=== PATIENT | female | born 1945 | race Caucasian/White ===

== ENCOUNTER 2016-03-24 08:02 | Inpatient (IN) | payer OTHER ==
[2016-03-24] VITALS (14 sets, daily range): BP systolic 130–179; BP diastolic 56–99
[~2016-03-24] VITALS: Ht 152.4 cm; Wt 38.6 kg
--- NOTE | 2016-03-24 09:07 | DIAGNOSTIC IMAGING REPORT ---
PROCEDURE: CT HEAD WITHOUT CONTRAST INDICATION: MENTAL STATUS CHANGE TECHNIQUE: Axial CT images were acquired through the head. Coronal and sagittal reformations were created. COMPARISON: None. FINDINGS: Mild cerebral cortical atrophy. Marked hypodensity in the periventricular and subcortical white matter. There is hydrocephalus with dilatation of the third ventricle and temporal horns. No intracranial hemorrhage or extraaxial fluid collections. There is no mass, mass effect or midline shift. The farias-white matter differentiation is normal. There is no edema. Calcific atherosclerosis of the intracranial internal carotid arteries. The calvarium is intact. The paranasal sinuses and mastoid air cells are normally aerated. The extracranial soft tissues and orbits are normal. IMPRESSION: 1. Hydrocephalus 2. Age related involutional and white matter changes. 3. Findings discussed with Dr. Montiel at 09:[address] scans at this facility use dose modulation, iterative reconstruction, and/or weight-based dosing when appropriate to reduce radiation dose to as low as reasonably achievable.
--- NOTE | 2016-03-24 09:09 | DIAGNOSTIC IMAGING REPORT ---
PROCEDURE: XR CHEST 1 VIEW INDICATION: RHONCHI TECHNIQUE: Portable AP view 8 am COMPARISON: None. FINDINGS: Lungs are clear. Heart and mediastinum are normal. Thorax is normal. Calcified breast implants. IMPRESSION: 1. No acute infiltrates
--- NOTE | 2016-03-24 10:00 | ED CLINICAL REPORT ---
Clinical Report - Physicians/Mid Levels [facility] [address] [place] [address] 03/24/2016 8:06 Patient: ABY HOLLIS Time Seen: 07:57. Arrived- By ambulance. Historian- EMS personnel. History limited by severe distress and aphasia. Physical Exam limited by poor comprehension, poor cooperation, severe distress and aphasia. CPT: Critical care < 74 min plus (#[id number]) and 30-74 min plus (#[id number]). EKG interpretation (#[id number]). HISTORY OF PRESENT ILLNESS Chief Complaint: "Found down". ( Unresponsive, but eyes open and tracking.). At its maximum, severity described as severe. When seen in the E.D., severity described as severe. Modifying factors. Not worsened by anything. Not relieved by anything. This started unknown and is still present. The patient has had weakness. (EMS were contacted by a neighbor. The patient was apparently found lying down in her front yard covered in dirt and alert though not responsive. They report that her blood glucose was normal but that she was too cold to measure a rectal temperature.). Similar symptoms previously: None. Recent medical care: Not recently seen/assessed. REVIEW OF SYSTEMS Unobtainable due to patient's altered mental status. PAST HISTORY Pt has no known PMH other than alcoholism reported by neighbors. Problems: Hypertension. SOCIAL HISTORY Alcohol use. FAMILY HISTORY Unable to obtain family medical history due to patient's unresponsiveness. ADDITIONAL NOTES The nursing notes have been reviewed. PHYSICAL EXAM Vital Signs: 03/24/2016 08:15 BP: 134/97. HR: 163. RR: 12. Kaur-Osorio pain scale: 4/10. Appearance: Alert. She is unresponsive, appears ill and uncomfortable and is cyanotic. She appears frail, elderly, unkempt and older than stated age. Patient in severe distress. Eyes: Pupils equal, round and reactive to light. Eyes normal inspection. ENT: Nose normal. Dry mucous membranes present. Neck: Neck supple. No meningeal signs, JVD or carotid bruit. CVS: Normal heart rate and rhythm. Heart sounds normal. Respiratory: No respiratory distress. Mild bilateral rhonchi present diffusely. Chest nontender. Abdomen: No visible injury. Soft and nontender. Bowel sounds normal. No mass. Back: Normal inspection. Rectal: Strongly heme-positive stool. (POC test reference range: negative). Skin: Cyanosis. Markedly cool skin. Pallor. She has multiple medium superficial abrasions on the right leg and left leg. She has multiple medium-sized bruises to the right hand, left hand, right leg and left leg. Extremities: No calf tenderness. No lower extremity edema. (deep cyanosis of all 4 distal extremities. Multiple abrasions over the extremities.). Neuro: Moderately altered mental status. Eyes open spontaneously. Best verbal response: none. Best motor response: obeys commands. (Eyes open but unresponsive.). No motor deficit. No sensory deficit. LABS, X-RAYS, AND EKG EKG: Atrial fibrillation. Non-specific ST segment / T wave abnormalities. Prior EKG unavailable. Artifact present. Chest X-ray: Normal Chest X-Ray. CT Head: No acute changes. No hemorrhage. (Hydrocephalus. No sign of CVA.). Head CT performed without contrast. The study was independently viewed by me, interpreted by the radiologist and discussed with the radiologist. Laboratory Tests: UA-Culture if indicated: (YANELI: 03/24/2016 09:04) ( MsgRcvd 03/24/2016 09:39) Final results Test Result Flag Units (Reference) URINE COLOR YELLOW URINE APPEARANCE SL CLOUDY URINE GLUCOSE TRACE (NEGATIVE) URINE BILIRUBIN NEGATIVE (NEGATIVE) URINE KETONE NEGATIVE (NEGATIVE) URINE SPECIFIC GRAVITY 1.025 (1.010-1.030) URINE PH 5.5 (5.0-8.0) URINE PROTEIN 2+ (NEGATIVE) URINE UROBILINOGEN 0.2 EU/dL (0.2-1.0) URINE NITRITE NEGATIVE (NEGATIVE) URINE BLOOD 3+ (NEGATIVE) URINE LEUK ESTERASE NEGATIVE (NEGATIVE) URINE RBC 0-1 rbc/hpf (0-1) URINE WBC 0-1 wbc/hpf (0-1) URINE EPITHELIAL CELLS NONE SEEN EPI/hpf (0-5) URINE BACTERIA NONE SEEN (NONE SEEN) URINE COMMENT CULT NOT INDICATED 4+ AMORPHOUSURINE CULTURES ARE SET-UP BASED ON THE FOLLOWING CRITERIA:POSITIVE NITRITEPOSITIVE LEUKOCYTE ESTERASEGREATER THAN 10 WHITE BLOOD CELLSMODERATE (2+) OR GREATER BACTERIA CBC w Diff: (YANELI: 03/24/2016 09:00) ( [facility] 03/24/2016 09:19) Final results Test Result Flag Units (Reference) WHITE BLOOD COUNT 10.4 K/uL (4.5-11.5) RED BLOOD COUNT 3.78 L M/uL (4.00-5.20) HEMOGLOBIN 13.4 gm/dL (12.0-16.0) HEMATOCRIT 39.9 % (36.0-46.0) MEAN CELL VOLUME 105 H fL (80-100) MEAN CORPUSCULAR HGB 35 H pg (26-34) MEAN CORPUSCULAR HGB CONC 34 g/dL (31-37) RED CELL DISTRIBUTION WIDTH 14.6 % (11.6-14.8) PLATELET COUNT 191 K/uL (150-400) NEUTROPHIL % 90.6 H % (50-75) LYMPH % 8.5 L % (25-40) MONO % 0.7 L % (3-14) EOSINOPHIL % 0.1 % (0-4) BASOPHIL % 0.1 % (0-2) PT with INR: (YANELI: 03/24/2016 09:15) ( [facility] 03/24/2016 09:39) Final results Test Result Flag Units (Reference) INR 1.2 (0.8-1.2) Low Intensity Therapy: INR 1.5-2.0 PT range 18.5-23.1Mod.Intensity Therapy: INR 2.0-3.0 PT range 23.1-31.5High Intensity Therapy: INR 2.5-3.5 PT range 27.4-35.5High Intensity Therapy 2: INR 3.0-4.0 PT range 31.5-39.3 APTT 34 SECONDS (24-34) Urine Drug Screen: (YANELI: 03/24/2016 09:04) ( [facility] 03/24/2016 09:42) Final results Test Result Flag Units (Reference) AMPHETAMINE/METHAMPHETAMINE NEGATIVE (NEGATIVE) BARBITURATE NEGATIVE (NEGATIVE) BENZODIAZEPINE NEGATIVE (NEGATIVE) CANNABINOID POSITIVE H (NEGATIVE) COCAINE NEGATIVE (NEGATIVE) ECSTASY NEGATIVE (NEGATIVE) METHADONE NEGATIVE (NEGATIVE) OPIATE NEGATIVE (NEGATIVE) The urine drug screen is a qualitative screening test fordrug overdose and abuse. All screen results should beconsidered as presumptive.Drugs screened for are as follows:BenzodiazepinesCocaineAmphetamines/MetamphetaminesTHC (Tetrahydrocannabinol)OpiatesBarbituratesEcstasyMethadonePositive results are unconfirmed. For confirmation, notifythe lab for the specimen to be sent to the reference lab.All confirmations must be performed by a differentmethodology.The ingestion of natural herbal and plant productscontaining Ephedra/Ephedra metabolites can produce in urineone or more substances capable of cross reacting withamphetamine/methamphetamine immunoassays. These testsprovide a preliminary result only. A more specificalternative chemical method must be used to obtain aconfirmed analytical result. Lactate, Serum: (YANELI: 03/24/2016 09:04) ( MsgRcvd 03/24/2016 09:54) Final results Test Result Flag Units (Reference) LACTIC ACID 4.0 H mmol/L (0.4-2.0) CRITICAL RESULTS CALLEDCalled to MARY KATE BECK IN ED 03/24/16 0953Were 2 patient identifiers used? YWas the result read back? Y CMP: (YANELI: 03/24/2016 09:00) ( MsgRcvd 03/24/2016 09:42) IP Test Result Flag Units (Reference) GLUCOSE 75 mg/dL (70-110) BUN 13 mg/dL (7-18) CREATININE 0.4 L mg/dL (0.6-1.3) Estimated GFR >60 mL/min Estimated GFR- >60 mL/min Note: Persistent reduction over 3 months in eGFR<60 mL/min/1.73 m2 defines CKD. Patients with eGFR values>=60 mL/min/1.73 m2 may also have CKD if evidence ofpersistent proteinuria. Additional information may be foundat www.kidney.org. SODIUM 128 L mmol/L (136-145) POTASSIUM 4.1 mmol/L (3.5-5.1) CHLORIDE 95 L mmol/L (98-107) CARBON DIOXIDE 17 L mmol/L (21-32) CALCIUM 7.8 L mg/dL (8.5-10.1) TOTAL PROTEIN 6.5 g/dL (6.4-8.2) ALBUMIN 3.5 g/dL (3.3-5.0) BILIRUBIN, TOTAL 0.3 mg/dL (0.0-1.0) ALKALINE PHOSPHATASE 54 U/L (46-116) AST (SGOT) 94 H U/L (15-37) ALT (SGPT) 28 U/L (12-78) LIPASE 389 U/L (73-393) AMYLASE 81 U/L (25-115) TROPONIN I 0.17 ng/mL (0.00-1.5) TROPONIN REFERENCE RANGE:<0.1 NEGATIVE0.1-1.5 INDETERMINANT>1.5 POSITIVE ETHYL ALCOHOL 41 H mg/dL (3-10) ABG: (YANELI: 03/24/2016 08:43) ( MsgRcvd 03/24/2016 09:07) Final results Test Result Flag Units (Reference) FIO2 37 % (20-101) ABG MODE OF DELIVERY NC MODIFIED AARTI TEST POSITIVE? YES LITERS PER MIN. 4 L/MIN (0-20) ARTERIAL BLOOD GAS SITE RR ARTERIAL BLOOD GAS pH 7.18 *L (7.35-7.45) ABG PCO2 43.8 mmHg (35-45) ABG PO2 135.0 H mmHg (60.0-80.0) ABG BASE EXCESS -11.1 *L mmol/L (-6.0--6.0) ABG HCO3 16.4 L mmol/L (20.0-26.0) ABG TCO2 17.7 L mmol/L (24.0-30.0) ABG [id number] 77.8 H mmHg (7.0-14.0) *NOTE: Normal rangeis based on aFIO2 of 21% ABG SAT O2 98.6 % (95.1-100.0) ABG TOTAL HEMOGLOBIN 12.2 g/dL (12.0-16.0) ABG O2 HEMOGLOBIN 96.4 % (95.0-100.0) ABG CARBOXYHEMOGLOBIN 2.1 H % (0.5-1.5) ABG METHEMOGLOBIN 0.1 L % (0.4-1.5) ABG RHEMOGLOBIN 1.4 % COMMENTS PT VERY COLD . PROGRESS AND PROCEDURES Course of Care: 10:10 03/24/16. Took over patient care at 09 100 due to shift change. Took report from Dr. Montiel. patient had unmeasurable temperature on arrival. Within an hour of arrival the patient's temperature was up to 82 and is now at 85F. This is per rectal probe. Her initial blood pressure in the mid 70s and is now 137 systolic after a liter of warm fluids. Dr. Mckeon arrived and evaluated the patient in the ER. The plan is to admit her to the ICU for further rewarming and monitoring. Records from outside walk-in clinic show a visit in 2012 but there is no past medical history her meds listed. Patient has not been compliant with primary care. She has no PCP. Roommate says that she's been a heavy drinker for some time. The patient's now more alert and asking appropriate questions and responding appropriately. Initially she was unresponsive with her eyes open tracking. Present problems include what appears to be a GI bleed is she's had ground emesis color material on her feet and her rectal guaiac is positive. She also has an alcohol level of 41 supporting her alcoholism. Hypothermia from exposure. In addition her troponin is indeterminate and she is in atrial fibrillation. She also has a metabolic acidosis with an elevated lactic acid of 4 and inappropriate respiratory compensation. Hydrocephalus noted on CT of head. IV NS with MVI and thiamine started. Discussed case with on-call health care provider, (Td). Reviewed test results. Agreed upon treatment plan and decision to admit. Health care provider will see patient in ED. Patient/family counseled. Old medical records ordered. Disposition orders written. Disposition: Admitted to the Critical Care Unit. CLINICAL IMPRESSION Substance abuse problems: abuse of alcohol and cannabis. Substance dependence problems: dependence on alcohol and cannabis. Severe hypothermia secondary to exposure with arrhythmia, hypotension, altered mental status and coma in the field and upon arrival at the ED. Profound hypotension. Lactic acidosis, metabolic acidosis and respiratory acidosis. Alcoholism GI bleed with guaiac positive stool Indeterminant troponin Atrial fibrillation: unclear how acute in onset. Hydrocephalus on CT today. Multiple contusions and abrasions Fall for unclear reasons. Elevated CPK. (Electronically signed by Aidan Monzon MD 03/25/2016 11:28)
--- NOTE | 2016-03-24 10:00 | ED ORDER SUMMARY ---
..... Patient: ABY HOLLIS OrderSheet [facility] VisitID: [id number] [place] [address] 70y, F Registration Date/Time: 03/24/2016 ORDER SHEET Weight: 49.8 kg (estimated) Allergies: None GENERAL ORDERS: Chest 1V Urgent (08:18 03/24/2016 Everton LOYD) (Ack 8:25 LMuller) (9:50 JSimbeck R.N.) Blood Culture (No) (N/A) Urgent (08:03/24/2016 Everton LOYD) (Ack 8:25 LMuller) (9:50 JSimbeck R.N.) Range Feeder (Continuous) (08:03/24/2016 Everton LOYD) (Ack 8:25 LMuller) (9:50 JSimbeck R.N.) CT Head wo Cont Urgent (08:03/24/2016 Everton LOYD) (Ack 8:25 LMuller) (9:50 JSimbeck R.N.) Solis Catheter (3 port for warmed fluid bladder lavage) (08:03/24/2016 Everton LOYD) (Ack 8:25 LMuller) (9:50 JSimbeck R.N.) CBC w Diff Urgent (:03/24/2016 Everton LOYD) (Ack 8:25 LMuller) (9:50 JSimbeck R.N.) CMP Urgent (:03/24/2016 Everton LOYD) (Ack 8:25 LMuller) (9:50 JSimbeck R.N.) UA-Culture if indicated Urgent (:03/24/2016 Everton LOYD) (Ack 8:25 LMuller) (9:50 JSimbeck R.N.) PT with INR Urgent (:03/24/2016 Everton LOYD) (Ack 8:25 LMuller) (9:50 JSimbeck R.N.) PTT Urgent (:03/24/2016 Everton LOYD) (Ack 8:25 LMuller) (9:50 JSimbeck R.N.) Amylase Urgent (:03/24/2016 Everton LOYD) (Ack 8:25 LMuller) (9:50 JSimbeck R.N.) Lipase Urgent (08:03/24/2016 Everton LOYD) (Ack 8:25 LMuller) (9:50 JSimbeck R.N.) CPK Urgent (08:03/24/2016 Everton LOYD) (Ack 8:25 LMuller) (9:50 JSimbeck R.N.) Troponin-I Urgent (08:03/24/2016 Everton LOYD) (Ack 8:25 LMuller) (9:50 JSimbeck R.N.) Lactate, Serum Urgent (08:03/24/2016 Everton LOYD) (Ack 8:25 LMuller) (9:50 JSimbeck R.N.) Ethyl Alcohol Urgent (08:03/24/2016 Everton LOYD) (Ack 8:25 LMuller) (9:50 JSimbeck R.N.) Urine Drug Screen Urgent (08:03/24/2016 Everton LOYD) (Ack 8:25 LMuller) (9:50 JSimbeck R.N.) Oxygen (2 L/min) (NC) (08:03/24/2016 Everton LOYD) (Ack 8:25 LMuller) (9:50 JSimbeck R.N.) Pulse oximeter (08:03/24/2016 Everton LOYD) (Ack 8:25 LMuller) (9:50 JSimbeck R.N.) EKG - ER Stat (08:03/24/2016 Everton LOYD) (Ack 8:25 LMuller) (9:50 JSimbeck R.N.) RENETTA Hugger (08:03/24/2016 Everton LOYD) (Ack 8:25 LMuller) (9:50 JSimbeck R.N.) ABG (G) Urgent (08:43 03/24/2016 Everton LOYD) (Ack 9:03 LMuller) (9:50 JSimbeck R.N.) Type & Screen Urgent (09:06 03/24/2016 Everton LOYD) (Ack 9:22 LMuller) (9:50 Franck George) Magnesium Urgent (10:09 03/24/2016 Jake LOYD) (10:12 LMulldiego) MEDICATION ORDERS: IV FLUIDS: IV NS : initial bolus 500 mL (1000 mL/hr), then 125 mL/hr for 4h (NOW); Urgent (warmed fluids) (08:19 03/24/2016 Everton LOYD) (9:53 Franck De León.NBon) IV NS with Normal Saline 1 Liter, Multivitamin Concentrate Intravenous 1 amp/L, Thiamine HCl 100 mg/L: initial bolus 1000 mL (1000 mL/hr), then 500 mL/hr for 4h (NOW); Routine (09:25 03/24/2016 Jake LOYD) (9:55 Franck R.N.) ORDER SHEET NOTES: [Electronically signed by Wesley Paulson R.N. (12:33 03/24/2016)] [Electronically signed by Wesley Paulson R.N. (12:34 03/24/2016)] [Electronically signed by Aidan Monzon MD (11:28 03/25/2016)] [Electronically locked/signed by Wesley Paulson R.N. (12:33 03/24/2016)]
--- NOTE | 2016-03-24 10:00 | ED NURSING NOTES ---
Clinical Report - Nurses [facility] [address] [place] [address] 03/24/2016 8:06 Patient: ABY HOLLIS TRIAGE Triage time 0800. Chief Complaint: (Pt found down in her front yard by a neighbor. Non-verbal, awake, does not follow commands. Hypothermic.). 08:45 03/24/16. --08:45 Wesley Paulson R.N. 08:15 03/24/16. BP: 134/97. HR: 163. RR: 12. Kaur-Osorio pain scale: 4/10. Additional comments: Unable to obtain rectal temp due to profound hypothermia, v/s are not reliable at this point. --10:34 Wesley Paulson R.N. Acuity: LEVEL 2. late entry -08:15. REED COMA SCORE: Iraan Coma Scale: 6- eyes open spontaneously (4); best verbal response- none (1); best motor response- none (1). --10:39 Wesley Paulson R.N. Weight: 49.8 kg estimated. Height/Length: 60 inches Estimated. BMI: 21.4. --10:36 Wesley Paulson R.N. Medications Aspirin Oral. Tylenol Oral. --08:44 Wesley Paulson R.N. Allergies None. --08:44 Wesley Paulson R.N. History Arrived by EMS. Onset. (Unknown how long she was down.). --08:45 Wesley Paulson R.N. SOCIAL HX: Smoker- current status unknown (cigarette). Heavy alcohol use. Patient is a longstanding alcoholic. --10:39 Wesley Paulson R.N. PROBLEMS: Hypertension. --08:44 Wesley Paulson R.N. Smoker. Alcoholism. --10:38 Wesley Paulson R.N. Interventions ID band on patient. To treatment room. --10:39 Wesley Paulson R.N. PHYSICAL ASSESSMENT late entry -08:15. To room via stretcher. GENERAL / NEURO / PSYCH: Appears in distress. The patient is disoriented. ( Non-verbal, unable to follow commands. Pt is covered in dirt and twigs.). Pupillary exam: Pupils are equal, round, and reactive to light. Right pupil 2mm. Left pupil: 2mm. RESPIRATORY: Wheezing present. CVS: No JVD. Cardiac rhythm: atrial fibrillation. Pulses: (peripheral pulses are extremely weak and thready by palpation.). Capillary refill is greater than 2 seconds. GI / : ( Guiac positive stool.). EXTREMITIES: No lower extremity edema. SKIN: Cyanosis. ( Skin is ice cold. She has multiple abrasions and avulsions on her hands, elbows, knees. Poor turgor.). --10:53 Wesley Paulson R.N. NURSING PROGRESS NOTES 08:10 03/24/2016 Site #1 started via IV in the right antecubital space with an 20g angiocath, with good blood return; two attempts. Saline lock flushed with 10 mL saline. --09:52 Wesley Paulson R.N. 08:10 03/24/2016 Site #2 started via IV in the left antecubital space with an 20g angiocath; two attempts. Blood drawn: rainbow set. Labeled in the presence of the patient and sent to the lab. Saline lock flushed with 10 mL saline. --09:52 Wesley Paulson R.N. 08:10 03/24/2016 Started bag #1 1000 mL IV Fluids IV NS (Saline); bolus of 1000 mL over 30 minute(s) via site #2. Allergies verified and confirmed 5 rights. IV patency established. IV site checked: no pain, redness, or swelling. IV flushed thoroughly pre- and post-medication administration. --09:53 Wesley Paulson R.N. 08:40 03/24/2016 IV Fluids IV NS via IV site #2 Rate Changed: bag #1 decreased to 125 mL/hr via IV pump. IV patency established. IV site checked: no pain, redness, or swelling. IV flushed thoroughly. Confirmed 5 Rights. --09:54 Wesley Paulson R.N. 09:40 03/24/2016 Started bag #1 1000 mL IV Fluids IV NS (Saline); bolus of 1000 mL over 1 hour(s) via site #2 --09:55 Wesley Paulson R.N. 10:52 03/24/2016 IV Fluids IV NS via IV site #2 Rate Changed: bag #2 decreased to 500 mL/hr via IV pump. IV patency established. IV site checked: no pain, redness, or swelling. IV flushed thoroughly. Confirmed 5 Rights. --10:52 Edwin Eckert R.N. late entry -08:10. ( Bear Hugger and Gaymar heating blankets applied for warming. IVF placed on Hotline fluid warmer.). --10:59 Wesley Paulson R.N. late entry -08:15. Cardiac rhythm: atrial fibrillation. Oxygen administered by nasal cannula at 4 liters. cat dog or other pet groomer, pulse oximeter, end tidal CO2 monitor and NIBP monitor placed on patient; director of cardiac rehabilitation- Lead II and V5; monitor alarms on. Head of bed elevated 15 degrees. Reassurance given. Two patient identifiers checked. Call light placed in reach. Side rails up x 2. Bed placed in lowest position. Brakes of bed on. Patient ready for evaluation- chart flagged. --10:55 Wesley Paulson R.N. late entry -08:45. Time-out completed immediately before the procedure. (0845) 18 fr double lumen brewer catheter placed. Reason for indwelling catheter: trauma and patient's decreased level of consciousness. During procedure hand hygiene observed and sterile equipment and aseptic technique used. Return of 125 mL yellow-colored urine; attached to bedside drainage bag positioned below the bladder and urimeter and secured with velcro. She tolerated procedure fair (3 way brewer for continuous bladder lavage for hypothermia treatment.). --10:57 Wesley Paulson R.N. late entry -08:45. ( Bladder irrigation fluid placed on Level I fluid warmer.). --10:59 Wesley Paulson R.N. 08:45 03/24/16. BP: 77/48. HR: 69. RR: 16. End tidal CO2: 16 mmHg. --11:00 Wesley Paulson R.N. 09:00 03/24/16. HR: 82. RR: 20. Temp: 83.3 F (rectal). End tidal CO2: 18 mmHg. --11:01 Wesley Paulson R.N. 09:15 03/24/16. BP: 127/81. HR: 90. RR: 21. Temp: 83.4 F (rectal). End tidal CO2: 18 mmHg. --11:02 Wesley Paulson R.N. 09:30 03/24/16. BP: 116/89. HR: 96. RR: 23. End tidal CO2: 18 mmHg. --11:04 Wesley Paulson R.N. 10:00 03/24/16. BP: 129/98. HR: 109. RR: 28. O2 saturation: 99% on nasal cannula at 4 liters/minute. Temp: 84 F (rectal). End tidal CO2: 18 mmHg. --11:06 Wesley Paulson R.N. 11:08 03/24/16. Temp: 90.3 F (rectal). --11:08 Wesley Paulson R.N. 10:15 03/24/16. BP: 147/90. HR: 112. RR: 28. O2 saturation: 98%. Temp: 87.6 F (rectal). End tidal CO2: 18 mmHg. --11:10 Wesley Paulson R.N. 10:30 03/24/16. BP: 143/91. HR: 118. RR: 28. O2 saturation: 98% on nasal cannula at 2 liters/minute. End tidal CO2: 18 mmHg. --11:11 Wesley Paulson R.N. 10:45 03/24/16. BP: 153/83. HR: 118. RR: 28. O2 saturation: 99% on nasal cannula at 2 liters/minute. Temp: 88.6 F. End tidal CO2: 18 mmHg. --11:12 Welsey Paulson R.N. 11:12 03/24/16. ( Pt required 2:1 RN care during her stay in the ED.). --11:12 Wesley Paulson R.N. late entry -10:00. ( Pt is awake, asking where her phone is, asking to call her mom. Pt is only oriented to herself. She still does not understand what is happening. Pt is restless.). --11:15 Wesley Paulson R.N. Care transferred and report given. ( [facility].). --11:42 Edwin Eckert R.N. DISPOSITION / DISCHARGE Report was given to a nurse via a phone call. Report included patient's care, treatment, medications, reviewed medication reconcilliation, and condition (including any recent changes or anticipated changes). All questions were answered. Report was acknowledged and care was transferred. --11:43 Edwin Eckert R.N. 12:00 03/24/2016 Site #[address] upon admission; patent, no pain and no signs of infection or infiltration. Good blood return present; flushes easily. --12:28 Wesley Paulson R.N. 12:00 03/24/2016 Site #[address] upon admission; patent, no pain and no signs of infection or infiltration. Good blood return present; flushes easily. --12:28 Wesley Paulson R.N. 12:29 03/24/16. Departure time: 1200. Condition at departure: improved. Brewer not discontinued. Admitted to the Critical Care Unit (304). Transported via stretcher by nurse with defibrillator, IV, O2 and ambu bag. REED COMA SCORE: Reed Coma Scale: 13- eyes open spontaneously (4); best verbal response- disoriented (4); best motor response- localizes to pain (5). --12:30 Wesley Paulson R.N. 11:30 03/24/16. BP: 119/68. HR: 127. RR: 28. O2 saturation: 100% on nasal cannula at 2 liters/minute. Temp: 93.3 F (rectal). End tidal CO2: 21 mmHg. Kaur-Osorio pain scale: 4/10. --12:30 Wesley Paulson R.N. Locked/Released at 03/24/2016 12:34 by Wesley Paulson R.N.
--- NOTE | 2016-03-24 10:00 | ED ORDER SUMMARY ---
..... Patient: ABY HOLLIS OrderSheet [facility] VisitID: [id number] [place] [address] 70y, F Registration Date/Time: 03/24/2016 ORDER SHEET Weight: 49.8 kg (estimated) Allergies: None GENERAL ORDERS: Chest 1V Urgent (08:18 03/24/2016 Everton LOYD) (Ack 8:25 LMuller) (9:50 JSimbeck R.N.) Blood Culture (No) (N/A) Urgent (08:03/24/2016 Everton LOYD) (Ack 8:25 LMuller) (9:50 JSimbeck R.N.) Wood Room Supervisor (Continuous) (08:03/24/2016 Everton LOYD) (Ack 8:25 LMuller) (9:50 JSimbeck R.N.) CT Head wo Cont Urgent (08:03/24/2016 Everton LOYD) (Ack 8:25 LMuller) (9:50 JSimbeck R.N.) Solis Catheter (3 port for warmed fluid bladder lavage) (08:03/24/2016 Everton LOYD) (Ack 8:25 LMuller) (9:50 JSimbeck R.N.) CBC w Diff Urgent (:03/24/2016 Everton LOYD) (Ack 8:25 LMuller) (9:50 JSimbeck R.N.) CMP Urgent (:03/24/2016 Everton LOYD) (Ack 8:25 LMuller) (9:50 JSimbeck R.N.) UA-Culture if indicated Urgent (:03/24/2016 Everton LOYD) (Ack 8:25 LMuller) (9:50 JSimbeck R.N.) PT with INR Urgent (:03/24/2016 Everton LOYD) (Ack 8:25 LMuller) (9:50 JSimbeck R.N.) PTT Urgent (:03/24/2016 Everton LOYD) (Ack 8:25 LMuller) (9:50 JSimbeck R.N.) Amylase Urgent (:03/24/2016 Everton LOYD) (Ack 8:25 LMuller) (9:50 JSimbeck R.N.) Lipase Urgent (08:03/24/2016 Everton LOYD) (Ack 8:25 LMuller) (9:50 JSimbeck R.N.) CPK Urgent (08:03/24/2016 Everton LOYD) (Ack 8:25 LMuller) (9:50 JSimbeck R.N.) Troponin-I Urgent (08:03/24/2016 Everton LOYD) (Ack 8:25 LMuller) (9:50 JSimbeck R.N.) Lactate, Serum Urgent (08:03/24/2016 Everton LOYD) (Ack 8:25 LMuller) (9:50 JSimbeck R.N.) Ethyl Alcohol Urgent (08:03/24/2016 Everton LOYD) (Ack 8:25 LMuller) (9:50 JSimbeck R.N.) Urine Drug Screen Urgent (08:03/24/2016 Everton LOYD) (Ack 8:25 LMuller) (9:50 JSimbeck R.N.) Oxygen (2 L/min) (NC) (08:03/24/2016 Everton LOYD) (Ack 8:25 LMuller) (9:50 JSimbeck R.N.) Pulse oximeter (08:03/24/2016 Everton LOYD) (Ack 8:25 LMuller) (9:50 JSimbeck R.N.) EKG - ER Stat (08:03/24/2016 Everton LOYD) (Ack 8:25 LMuller) (9:50 JSimbeck R.N.) RENETTA Hugger (08:03/24/2016 Everton LOYD) (Ack 8:25 LMuller) (9:50 JSimbeck R.N.) ABG (G) Urgent (08:43 03/24/2016 Everton LOYD) (Ack 9:03 LMuller) (9:50 JSimbeck R.N.) Type & Screen Urgent (09:06 03/24/2016 Everton LOYD) (Ack 9:22 LMuller) (9:50 Franck George) Magnesium Urgent (10:09 03/24/2016 Jake LOYD) (10:12 LMulldiego) MEDICATION ORDERS: IV FLUIDS: IV NS : initial bolus 500 mL (1000 mL/hr), then 125 mL/hr for 4h (NOW); Urgent (warmed fluids) (08:19 03/24/2016 Everton LOYD) (9:53 Franck De León.NBon) IV NS with Normal Saline 1 Liter, Multivitamin Concentrate Intravenous 1 amp/L, Thiamine HCl 100 mg/L: initial bolus 1000 mL (1000 mL/hr), then 500 mL/hr for 4h (NOW); Routine (09:25 03/24/2016 Jake LOYD) (9:55 Franck R.N.) ORDER SHEET NOTES: [Electronically signed by Wesley Paulson R.N. (12:33 03/24/2016)] [Electronically signed by Wesley Paulson R.N. (12:34 03/24/2016)] [Electronically signed by Aidan Monzon MD (11:28 03/25/2016)] [Electronically locked/signed by Wesley Paulson R.N. (12:33 03/24/2016)]
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
[2016-03-24] MEDS ORDERED: TYLENOL650 MG PO (16:03)
[2016-03-24] MEDS ORDERED: ACETAMINOPHEN325 MG PO (16:07)
[2016-03-25] VITALS (24 sets, daily range): BP systolic 122–175; BP diastolic 62–87
--- NOTE | 2016-03-25 06:06 | Progress Note ---
Late Entry Date/Time Late Entry Date and Time Patient started on flagyl for c. dificile positive antigen and diarrhea Lisinopril 10 mg po daily for hypertension sbp 170 Potassium 2.4-- ordered for KCL 60 meq IVpb and 40 meq PO KCl x 2 doses; magnesium 1.5 so Mag sulfate 2 grams ordered. Repeat K and mag at 3 pm
--- NOTE | 2016-03-25 11:28 | ED MAR SUMMARY ---
..... Medication Administration Record [facility] [address] [place] [address] Patient: ABY HOLLIS Visit ID: [id number] 70y, F Weight: 49.8 kg Height/Length: 60 in BMI: 21.4 ALLERGIES: None Start 08:10 03/24/2016 Wesley Paulson R.N. Medication Administered: IV NS (SALINE), Dose: IV Fluids, Bolus: 1000 mL over 30 minute(s), Dispensed: 1000 mL bag, Site: #2 left AC. Medication Ordered: IV NS : initial bolus 500 mL (1000 mL/hr), then 125 mL/hr for 4h (NOW); Urgent (warmed fluids). Start 09:40 03/24/2016 Wesley Paulson R.N. Medication Administered: IV NS (SALINE), Dose: IV Fluids, Bolus: 1000 mL over 1 hour(s), Dispensed: 1000 mL bag, Site: #2 left AC. Medication Ordered: IV NS with Normal Saline 1 Liter, Multivitamin Concentrate Intravenous 1 amp/L, Thiamine HCl 100 mg/L: initial bolus 1000 mL (1000 mL/hr), then 500 mL/hr for 4h (NOW); Routine.
--- NOTE | 2016-03-25 11:28 | ED MAR SUMMARY ---
..... Medication Administration Record [facility] [address] [place] [address] Patient: ABY HOLLIS Visit ID: [id number] 70y, F Weight: 49.8 kg Height/Length: 60 in BMI: 21.4 ALLERGIES: None Start 08:10 03/24/2016 Wesley Paulson R.N. Medication Administered: IV NS (SALINE), Dose: IV Fluids, Bolus: 1000 mL over 30 minute(s), Dispensed: 1000 mL bag, Site: #2 left AC. Medication Ordered: IV NS : initial bolus 500 mL (1000 mL/hr), then 125 mL/hr for 4h (NOW); Urgent (warmed fluids). Start 09:40 03/24/2016 Wesley Paulson R.N. Medication Administered: IV NS (SALINE), Dose: IV Fluids, Bolus: 1000 mL over 1 hour(s), Dispensed: 1000 mL bag, Site: #2 left AC. Medication Ordered: IV NS with Normal Saline 1 Liter, Multivitamin Concentrate Intravenous 1 amp/L, Thiamine HCl 100 mg/L: initial bolus 1000 mL (1000 mL/hr), then 500 mL/hr for 4h (NOW); Routine.
--- NOTE | 2016-03-25 11:28 | ED MED RECONCILIATION SUMMARY ---
Patient: ABY HOLLIS Medication Reconciliation Report [facility] VisitID: [id number] [address] [place] [address] 70y, F Registration Date/Time: 03/24/2016 Weight: 49.8 kg Height/Length: 60 in. BMI: 21.4 ALLERGIES: None The patient's Home Medications are listed below: THE FOLLOWING MEDICATIONS NEED TO BE RECONCILED: Aspirin Oral Tylenol Oral The source(s) of the original Home Medication information: Not obtained. The following Medications were given to the patient in the Emergency Department: IV NS IV Fluids bolus 1000 mL over 30 minute(s), administered: 03/24/2016 8:10:00 AM IV NS IV Fluids bolus 1000 mL over 1 hour(s), administered: 03/24/2016 9:40:00 AM The following Medications were prescribed to the patient: None.
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
--- NOTE | 2016-03-25 11:28 | ED MED RECONCILIATION SUMMARY ---
Patient: ABY HOLLIS Medication Reconciliation Report [facility] VisitID: [id number] [address] [place] [address] 70y, F Registration Date/Time: 03/24/2016 Weight: 49.8 kg Height/Length: 60 in. BMI: 21.4 ALLERGIES: None The patient's Home Medications are listed below: THE FOLLOWING MEDICATIONS NEED TO BE RECONCILED: Aspirin Oral Tylenol Oral The source(s) of the original Home Medication information: Not obtained. The following Medications were given to the patient in the Emergency Department: IV NS IV Fluids bolus 1000 mL over 30 minute(s), administered: 03/24/2016 8:10:00 AM IV NS IV Fluids bolus 1000 mL over 1 hour(s), administered: 03/24/2016 9:40:00 AM The following Medications were prescribed to the patient: None.
--- NOTE | 2016-03-25 18:58 | Progress Note ---
Subjective General Patient seen and examined. Patient has improved significantly from yesterday. Patient has no complaints at the moment. Constitutional Denies: Fever, Chills, Sweats, Weakness, Malaise, Other. Eyes Denies: Pain, Vision Change, Conjunctival Inflammation, Eyelid Inflammation, Redness, Other. Respiratory Denies: Cough. Cardiovascular Denies: Chest Pain, Palpitations, Orthopnea, PND, Edema, Light-headedness, Other. Gastrointestinal Diarrhea. Denies: Nausea, Vomiting, Abdominal Pain, Constipation, Melena, Hematochezia, Other. Genitourinary Denies: Dysuria, Frequency, Incontinence, Hematuria, Retention, Other. Musculoskeletal Denies: Neck Pain, Shoulder Pain, Arm Pain, Back Pain, Hand Pain, Leg Pain, Foot Pain, Other. Skin Lesions, Bruising. Denies: Rash, Jaundice, Other. Physical Exam Vital Signs / I&Os Vital Signs Date Time Temp Pulse Resp B/P Pulse O2 O2 Flow FiO2 Ox Delivery Rate 03/25 1832 99.3 94 20 156/76 96 Room Air 03/25 1708 99.5 89 20 157/76 94 Room Air 03/25 1608 99.5 87 20 140/77 95 Room Air 03/25 1514 99.3 91 20 143/78 96 Room Air 03/25 1400 130/71 03/25 1359 99.0 88 22 97 Room Air 0.0 03/25 1300 93 22 145/84 97 Room Air 0.0 03/25 1209 90 18 134/87 100 Room Air 03/25 1100 97.9 82 18 143/73 100 Room Air 0.0 03/25 1000 86 20 122/66 100 Room Air 0.0 03/25 0900 91 23 141/74 100 Room Air 0.0 03/25 0805 Room Air 03/25 0800 92 18 125/70 100 Room Air 0.0 03/25 0700 93 19 139/62 100 Room Air 0.0 03/25 0600 91 18 132/65 100 Nasal 0.0 Cannula 03/25 0500 94 20 175/82 100 Room Air 03/25 0413 97 19 159/74 100 Room Air 03/25 0300 94 20 171/87 99 Room Air 03/25 0214 99.0 94 22 172/81 99 Room Air 03/25 0100 99 22 165/72 98 Room Air 02/09 0000 96 21 151/75 98 Room Air 03/24 2300 97 18 169/82 100 Room Air 03/24 2219 98.8 96 21 170/85 100 Room Air 03/24 2131 90 17 141/81 100 Room Air 03/24 2025 87 18 172/56 99 Room Air 03/24 1900 87 20 161/83 99 Room Air I&O 03/24 0800 / 1600 03/25 0000 Intake Total 0 360 Output Total 3775 664 Balance -3775 -304 General Appearance Alert, Oriented X3, No acute distress HEENT Atraumatic, EOMI, Moist mucous membranes Lungs - pt developing ronchi Cardiovascular Regular rate and rhythm, No murmurs, gallops, rubs Abdomen Soft, No tenderness Extremities No edema, Normal pulses, -bruising present all over bilateral lower extremities Skin - lesions on all four extremities. documented and photographed in chart Neurological Normal speech, Sensation intact Psych/Mental Status Mood normal LAB Results Laboratory Tests 03/25 03/25 03/25 0400 0400 0400 Chemistry Plasma Sodium (136 - 145 mmol/L) 135 Plasma Potassium (3.5 - 5.1 mmol/L) 2.4 Plasma Chloride (98 - 107 mmol/L) 100 CO2 (Enzymatic) (21 - 32 mmol/L) 19 BUN (7 - 18 mg/dL) 9 Creatinine (0.6 - 1.3 mg/dL) 0.5 Est GFR ( Amer) (mL/min) >60 Est GFR (Non-Af Amer) (mL/min) >60 Glucose (70 - 110 mg/dL) 70 Lactic Acid (0.4 - 2.0 mmol/L) 0.7 Plasma Calcium (8.5 - 10.1 mg/dL) 7.6 Plasma Magnesium (1.8 - 2.4 mg/dL) 1.5 Total Bilirubin (0.0 - 1.0 mg/dL) 0.5 AST (15 - 37 U/L) 294 ALT (12 - 78 U/L) 64 Alkaline Phosphatase (46 - 116 U/L) 47 Creatine Kinase (24 - 260 U/L) 9147 CK-MB (CK-2) (0.5 - 3.2 ng/mL) 132.1 CK/CKMB % Calc (0.0 - 4.0 %) 1.4 Total Protein (6.4 - 8.2 g/dL) 5.9 Albumin (3.3 - 5.0 g/dL) 3.1 Hematology WBC (4.5 - 11.5 K/uL) 9.1 RBC (4.00 - 5.20 M/uL) 3.56 Hgb (12.0 - 16.0 gm/dL) 12.4 Hct (36.0 - 46.0 %) 36.9 MCV (80 - 100 fL) 104 MCH (26 - 34 pg) 35 RDW (11.6 - 14.8 %) 15.0 Neut % (Auto) (50 - 75 %) 79.9 Lymph % (Auto) (25 - 40 %) 13.5 [place] % (Auto) (3 - 14 %) 6.3 Eos % (Auto) (0 - 4 %) 0 Baso % (Auto) (0 - 2 %) 0.3 Plt Count, EDTA (150 - 400 K/uL) 204 PUBS MCHC (31 - 37 g/dL) 34 Microbiology Date/Time Procedure - Status Source Growth 03/24 2038 Clostridium difficile Toxin A & B - COMP STOOL 03/24 2038 Specimen Source - COMP STOOL Assessment and Plan Problem List 1. SEVERE HYPOTHERMIA Plan -resolved 2. ALCOHOLISM Plan - currently patient does not exhibit any signs of withdrawal - will continue on ciwa protocol 3. Rhabdomyolysis Plan - cpk has increased in comparison to yesterday - will c/w aggressive iv hydration as much as patient can tolerate 4. Guaiac positive stools Plan - pt has not had any repeat guiac positive stools - will continue to trend cbc 5. C. difficile diarrhea Plan - pt has had diarrhea which tested positive for c diff - yl iniated
--- NOTE | 2016-03-25 19:13 | DIAGNOSTIC IMAGING REPORT ---
PROCEDURE: XR CHEST 1 VIEW INDICATION: possible infection, TECHNIQUE: Portable AP view 06:27 p.m. COMPARISON: Chest x-ray 03/24/2016 FINDINGS: Lungs are clear. Heart and mediastinum are normal. Thorax is normal. Calcified bilateral breast implants. IMPRESSION: 1. Negative chest. 2. Results called to the CCU
[2016-03-26] VITALS (13 sets, daily range): BP systolic 140–1448; BP diastolic 62–95
--- NOTE | 2016-03-26 18:31 | Progress Note ---
Subjective General Pt seen and examined. Patient is having persistent productive cough. Patient is otherwise stable. No fevers, no evidence of fluid overload on xray. Will continue to monitor overnight. Constitutional Denies: Fever, Chills, Sweats, Weakness, Malaise, Other. Eyes Denies: Pain, Vision Change, Conjunctival Inflammation, Eyelid Inflammation, Redness, Other. ENT Denies: Ear Pain, Ear Discharge, Nose Pain, Nasal Discharge, Nasal Congestion, Mouth Pain, Mouth Swelling, Throat Pain, Throat Swelling, Other. Respiratory Denies: Cough, Dry, SOB w/exertion, Wheezing, Hemoptysis, Pleuritic Pain, Sputum , Other. Gastrointestinal Denies: Nausea, Vomiting, Abdominal Pain, Diarrhea, Constipation, Melena, Hematochezia, Other. Genitourinary Denies: Dysuria, Frequency, Incontinence, Hematuria, Retention, Other. Musculoskeletal Denies: Neck Pain, Shoulder Pain, Arm Pain, Back Pain, Hand Pain, Leg Pain, Foot Pain, Other. Skin Denies: Rash, Lesions, Jaundice, Bruising, Other. Neurological Denies: Weakness, Numbness, Incoordination, Change in speech, Confusion, Seizures, Other. Physical Exam Vital Signs / I&Os Vital Signs Date Time Temp Pulse Resp B/P Pulse O2 O2 Flow FiO2 Ox Delivery Rate 03/26 1404 98.8 96 21 145/62 99 Room Air 03/26 1000 87 17 140/80 100 Room Air 0.0 03/26 0921 94 21 1448/83 99 Room Air 0.0 03/26 0829 Room Air 03/26 0713 84 18 180/91 94 Room Air 0.0 03/26 0611 97.3 83 18 178/90 97 Room Air 03/26 0548 170/93 03/26 0518 88 22 189/94 97 Room Air 03/26 0417 87 22 173/87 95 Room Air 03/26 0302 98.1 90 22 180/95 95 Room Air 03/26 0211 88 20 180/87 95 Room Air 03/26 0111 86 17 155/83 96 Room Air 03/26 0000 85 17 181/76 94 Room Air 03/25 2300 80 19 161/77 97 Room Air 03/25 2204 98.4 87 19 133/78 97 Room Air 03/25 2121 99.1 89 20 139/79 98 Room Air 03/25 2014 98.4 95 25 136/84 98 Room Air 03/25 1906 98.1 97 21 156/84 98 Room Air I&O 03/25 0800 03/25 1600 03/26 0000 Intake Total 6851 561 5931 Output Total 337 358 309 Balance 3495 382 4763 General Appearance Alert, Oriented X3, No acute distress HEENT Normal exam, PERRLA, Moist mucous membranes Lungs Normal exam, Clear to auscultation, - lower lung godinze reveal crackles Abdomen No tenderness, No guarding, No rebound Extremities No clubbing, No edema, - bruises present as mentioned before Skin - bruises in various stages of healing throughout the body the worst being the left wrist and the left knee Neurological Normal speech, Normal tone, Sensation intact LAB Results Laboratory Tests 03/26 0355 Chemistry Plasma Sodium (136 - 145 mmol/L) 133 Plasma Potassium (3.5 - 5.1 mmol/L) 3.8 Plasma Chloride (98 - 107 mmol/L) 103 CO2 (Enzymatic) (21 - 32 mmol/L) 19 BUN (7 - 18 mg/dL) 6 Creatinine (0.6 - 1.3 mg/dL) 0.4 Est GFR ( Amer) (mL/min) >60 Est GFR (Non-Af Amer) (mL/min) >60 Glucose (70 - 110 mg/dL) 89 Plasma Calcium (8.5 - 10.1 mg/dL) 7.6 Total Bilirubin (0.0 - 1.0 mg/dL) 0.4 AST (15 - 37 U/L) 268 ALT (12 - 78 U/L) 74 Alkaline Phosphatase (46 - 116 U/L) 40 Creatine Kinase (24 - 260 U/L) 6323 CK-MB (CK-2) (0.5 - 3.2 ng/mL) 67.5 CK/CKMB % Calc (0.0 - 4.0 %) 1.1 Total Protein (6.4 - 8.2 g/dL) 5.4 Albumin (3.3 - 5.0 g/dL) 2.8 Hematology WBC (4.5 - 11.5 K/uL) 9.9 RBC (4.00 - 5.20 M/uL) 3.18 Hgb (12.0 - 16.0 gm/dL) 11.1 Hct (36.0 - 46.0 %) 33.1 MCV (80 - 100 fL) 104 MCH (26 - 34 pg) 35 RDW (11.6 - 14.8 %) 15.3 Neut % (Auto) (50 - 75 %) 72.6 Lymph % (Auto) (25 - 40 %) 20.5 [place] % (Auto) (3 - 14 %) 6.0 Eos % (Auto) (0 - 4 %) 0.5 Baso % (Auto) (0 - 2 %) 0.4 Plt Count, EDTA (150 - 400 K/uL) 174 PUBS MCHC (31 - 37 g/dL) 34 Assessment and Plan Problem List 1. C. difficile diarrhea Plan - currently stable, no repeat episodes of diarrhea - will continue to monitor 2. Rhabdomyolysis Plan - pt will continue to monitor cpk - can not aggressively hydrate due to pt being easily fluid overloaded - will continue to obtain cmps and monitor cpk 3. Guaiac positive stools Plan - pt has had stable hemoglobin since admission - no dark stools or repeat episodes of bleeding - will continue to monitor
[2016-03-27] VITALS (8 sets, daily range): BP systolic 139–177; BP diastolic 75–93
--- NOTE | 2016-03-27 17:49 | Progress Note ---
Subjective General Patient seen and examined. Patient is improving however patient is still having ronchi and non productive cough. Patient is otherwise stable, will downgrade from ccu today. Constitutional Denies: Fever, Chills, Sweats, Weakness, Malaise, Other. Eyes Denies: Pain, Vision Change, Conjunctival Inflammation, Eyelid Inflammation, Redness, Other. Respiratory Cough. Denies: Dry, SOB w/exertion, Wheezing, Hemoptysis, Pleuritic Pain, Sputum, Other. Cardiovascular Denies: Chest Pain, Palpitations, Orthopnea, PND, Edema, Light-headedness, Other. Gastrointestinal Denies: Nausea, Vomiting, Abdominal Pain, Diarrhea, Constipation, Melena, Hematochezia, Other. Musculoskeletal Denies: Neck Pain, Shoulder Pain, Arm Pain, Back Pain, Hand Pain, Leg Pain, Foot Pain, Other. Skin Lesions, Bruising. Denies: Rash, Jaundice, Other. Physical Exam Vital Signs / I&Os Vital Signs Date Time Temp Pulse Resp B/P Pulse O2 O2 Flow FiO2 Ox Delivery Rate 03/27 1431 97.7 65 22 156/83 100 Room Air 03/27 1107 Room Air 03/27 1038 98.4 78 16 139/78 98 Room Air 0.0 03/27 0654 97.7 84 29 177/92 98 Room Air 0.0 03/27 0222 98.1 80 16 163/76 98 Room Air 03/27 0126 80 19 160/80 96 Room Air 03/27 0011 86 20 166/93 97 Room Air 03/26 2000 Room Air 0.0 03/26 1840 99.0 83 18 148/79 99 I&O 03/26 0800 03/26 1600 03/27 0000 Intake Total 2700 517 820 Output Total 1705 1728 905 Balance 995 -1211 -85 General Appearance Alert, Oriented X3, No acute distress HEENT Atraumatic, Moist mucous membranes Lungs Clear to auscultation, Normal air movement Cardiovascular Normal S1 and S2, No murmurs, gallops, rubs Abdomen Soft, No tenderness, No guarding, No rebound Extremities No cyanosis, No clubbing, - decreased strength in the lower extremities Skin No Rashes Neurological Normal speech, Normal tone, Cranial nerves intact Assessment and Plan Problem List 1. C. difficile diarrhea Plan - pt has been diarrhea that tested positive for c diff - will continue with flagyl po - no diarrhea noted since 2. Guaiac positive stools Plan - pts hemoglobin has been stable - no repeat episodes of dark stools - pt will follow up with gi as an out patient 3. Rhabdomyolysis Plan - will continue to trend cpk - will continue to monitor
[2016-03-28 05:17] VITALS: BP 166/87
[2016-03-28 07:23] VITALS: BP 162/91
[2016-03-28 10:05] VITALS: BP 155/89
[2016-03-28 14:37] VITALS: BP 145/70
[2016-03-28 18:33] VITALS: BP 148/72
--- NOTE | 2016-03-28 19:20 | Progress Note ---
Subjective General Pt seen and examined. Patient progressing nicely. Constitutional Denies: Fever, Chills, Sweats, Weakness, Malaise, Other. Eyes Denies: Pain, Vision Change, Conjunctival Inflammation, Eyelid Inflammation, Redness, Other. ENT Denies: Ear Pain, Ear Discharge, Nose Pain, Nasal Discharge, Nasal Congestion, Mouth Pain, Mouth Swelling, Throat Pain, Throat Swelling, Other. Respiratory Denies: Cough, Dry, SOB w/exertion, Wheezing, Hemoptysis, Pleuritic Pain, Sputum , Other. Cardiovascular Denies: Chest Pain, Palpitations, Orthopnea, PND, Edema, Light-headedness, Other. Gastrointestinal Denies: Nausea, Vomiting, Abdominal Pain, Diarrhea, Constipation, Melena, Hematochezia, Other. Genitourinary Denies: Dysuria, Frequency, Incontinence, Hematuria, Retention, Other. Musculoskeletal Denies: Neck Pain, Shoulder Pain, Arm Pain, Back Pain, Hand Pain, Leg Pain, Foot Pain, Other. Skin Bruising. Neurological Denies: Weakness, Numbness, Incoordination, Change in speech, Confusion, Seizures, Other. Physical Exam Vital Signs / I&Os Vital Signs Date Time Temp Pulse Resp B/P Pulse O2 O2 Flow FiO2 Ox Delivery Rate 03/29 1028 98.8 81 20 160/83 100 Room Air 0.0 03/29 1014 Room Air 03/29 0632 97.9 88 16 172/88 98 03/29 0323 97.9 77 16 155/80 98 Room Air 03/29 0134 Room Air 03/28 2237 98.4 77 18 137/72 98 Room Air 03/28 2122 Room Air 03/28 1833 98.4 78 20 148/72 100 Room Air I&O 03/28 0800 03/28 1600 03/29 0000 Intake Total 50 2015 400 Output Total 988 630 275 Balance -938 1385 125 General Appearance Alert, Oriented X3, No acute distress HEENT Normal exam, EOMI, Moist mucous membranes Lungs Clear to auscultation, Normal air movement Neck Normal exam Cardiovascular Normal exam Abdomen Soft, No tenderness Extremities No edema, Normal pulses Neurological Normal speech, Normal tone, Sensation intact LAB Results Laboratory Tests 03/29 0420 Chemistry Plasma Sodium (136 - 145 mmol/L) 129 Plasma Potassium (3.5 - 5.1 mmol/L) 3.4 Plasma Chloride (98 - 107 mmol/L) 95 CO2 (Enzymatic) (21 - 32 mmol/L) 26 BUN (7 - 18 mg/dL) 6 Creatinine (0.6 - 1.3 mg/dL) 0.5 Est GFR ( Amer) (mL/min) >60 Est GFR (Non-Af Amer) (mL/min) >60 Glucose (70 - 110 mg/dL) 97 Plasma Calcium (8.5 - 10.1 mg/dL) 7.8 Total Bilirubin (0.0 - 1.0 mg/dL) 0.3 AST (15 - 37 U/L) 109 ALT (12 - 78 U/L) 68 Alkaline Phosphatase (46 - 116 U/L) 41 Total Protein (6.4 - 8.2 g/dL) 5.0 Albumin (3.3 - 5.0 g/dL) 2.7 Assessment and Plan Problem List 1. SEVERE HYPOTHERMIA Plan - resolved - pt has been stable 2. Hyponatremia Plan - improving - pt told to avoid alcohol and start eating better 3. ALCOHOLISM Plan - pt expicitly told that she should avoid alcohol in the future - pt claims that she will moderate her drinking 4. C. difficile diarrhea Plan - resolved - will stop flagyl
[2016-03-28 22:37] VITALS: BP 137/72
[2016-03-29 03:23] VITALS: BP 155/80
[2016-03-29 06:32] VITALS: BP 172/88
[2016-03-29 10:28] VITALS: BP 160/83
[2016-03-29] MEDS ORDERED: FUROSEMIDE20 MG PO (16:25)
[2016-03-29] MEDS ORDERED: TOPROL XL50 MG PO (16:25)
--- NOTE | 2016-03-29 16:27 | Provider's Discharge Care Plan ---
Problem, Goal, Plan Problem List 1. Hypertension Instructions: Take meds as directed 2. C. difficile diarrhea Instructions: - resolved 3. Guaiac positive stools Instructions: - please obtain a primary care doctor and begin your regular health maintenance visits
--- NOTE | 2016-03-29 16:29 | Discharge Summary ---
Discharge Summary Report Admit Date 03/24/16 Discharge Date 03/29/16 Admission Diagnosis hypothermia Discharge Diagnosis hypothermia and altered mental status Brief History Patient is a 70 year old female that is presenting to the ER after being found down outside by her neighbor. Patient does not recall anything about last night, what she can recollect is that she was sad that her daughter stole her parrot and proceeded to drink heavily throughout the day. Patient later was found by her neighbor. Patient was brought to the ER where her temperature was seen to be 80 F. Patient was hypotensive and bradycardic. Patient was actively rewarmed in the ER and seen to regain conciousness. Pt was seen to be acidotic with lactic acidosis. Patient was admitted to the CCU. Patient was seen to be hypotensive and was mentating at baseline by arrival to the unit. Hospital Course Patient was admitted to the ICU for hypothermia. Patient was rewarmed quickly and she was able to converse normally. Patient had acidosis which resolved after patient was rewarmed. Patient was seen to have c diff positive diarrhea for which she was started on flagyl. Patient had elevated cpk levels which were secondary to lying on the floor for a prolongues period of time. Patient had aggressive iv hydration in order to combat this. Patient was seen to be overloaded with fluid given the iv hydration which was improved with lasix. Patients blood pressure was seen to be continually elevated and patient was started on beta cosmo. Lastly patient was seen to be hyponatremic secondary to prolongued poor nutrition and alcoholism. Patients hyponatremia improved however patient will need to abstain from alcohol. Patient will be discharged. General Appearance Alert, Oriented X3, No acute distress Lungs Clear to auscultation Cardiovascular Regular Rate Abdomen Soft, No tenderness Skin No Breakdown Discharge Instructions/Meds - take medications as prescribed - avoid alcohol
[2016-03-29 16:32] VITALS: BP 161/91
[2016-03-29] MEDS ORDERED: [UNRECOGNIZED DRUG - OTHER] PO (16:49)
[2016-03-29] MEDS ORDERED: PROBIOTIC PO (16:49)
[2016-03-29] MEDS ORDERED: FLAGYL500 MG PO (16:49)
== END 2016-03-29 18:00 | disposition home or self-care (01) | DRG 923 ==
LOC: ED SRH 08:02 → TRANS SRH 10:05 → CC SRH 10:05
PROVIDERS: ADMIT Emergency Medicine
DX: T68.XXXA Hypothermia, initial encounter (principal); M62.82 Rhabdomyolysis; E87.1 Hypo-osmolality and hyponatremia; E87.2 Acidosis; E87.4 Mixed disorder of acid-base balance; A04.7 Enterocolitis due to Clostridium difficile; G91.9 Hydrocephalus, unspecified; X31.XXXA Exposure to excessive natural cold, initial encounter; T14.8 Other injury of unspecified body region; X58.XXXA Exposure to other specified factors, initial encounter; E87.79 Other fluid overload; F10.20 Alcohol dependence, uncomplicated; Y90.2 Blood alcohol level of 40-59 mg/100 ml; I48.91 Unspecified atrial fibrillation
CPT/HCPCS: 81240; 82134; 83676; 85244; 90001; 90004; 90065; 90074; 90100; 90112; 90155; 90616; 90617; 91004; 92010; 92031; 92132; 92235; 92530; 92610; 92720; 92760; 92761; 92762; 92763; 92764; 92765; 92766; 92767; 94001; 94060; 95059